=== PATIENT | male | born 1965 | race Caucasian/White ===

== ENCOUNTER 2024-10-11 11:22 | Emergency (ER) | payer OTHER, SELFPAY ==
[2024-10-11 11:26] VITALS: BP 146/81; PULSE 79; RESP 18; TEMP 36.2; O2SAT 95; BMI 32.1
--- NOTE | 2024-10-11 11:37 | ED_ITS ---
HPI - General Adult General Chief complaint: Burn/Smoke Inhalation Stated complaint: Burned 3 fingers left hand Time Seen by Provider: 10/11/24 11:28 History of Present Illness HPI narrative: Pt has a wood stove. Pt tried catching a hot log before it could drop on his toes, burning his 2nd -4th digits on his left hand. Pt ran fingers under cold water immediately after and took 800mg of Ibuprofen. Has blisters forming on the top pads of each 3 fingers. 59-year-old man presenting to the emergency department with concern of his burn to his left hand. Has a wood stove and a log was about to drop on his toes. Holding would with his right hand he reached out with his left hand and burned them on glass. He is burned the pads of his fingers. He has ran his fingers under cold water and took 800 mg of ibuprofen. I enter the room to see him with his fingers in a cup of ice water. Related Data Home Medications ?Medication ?Instructions ?Recorded ?Confirmed lisinopril 20 mg tablet mg DAILY 10/11/24 Allergies Allergy/AdvReac Type Severity Reaction Status Date / Time No Known Drug Allergies Allergy Verified 10/11/24 11:31 Review of Systems Status of ROS: Reports: 6 or more systems reviewed and unremarkable except as noted in History and below [facility] Social History service: No Exam Narrative: Exam Narrative: Pleasant. NAD. Calm. Breathing easily. Examining his left hand. There is 1 large blister covering the distal finger pad of the 2nd 3rd and 4th fingers of the left hand. Sharma are not circumferential. Well-perfused peripherally. Const: Vital Signs, click to edit/add: Vital Signs - 24 hr 10/11/24 11:26 Temperature 97.2 F L Pulse Rate [Right Pulse Oximeter] 79 Respiratory Rate 18 Blood Pressure [Ri ght Upper Arm] 146/81 H Pulse Oximetry 95 Oxygen Delivery Me thod Room Air Documenting provider has reviewed patient's vital signs: yes Course Vital Signs Vital signs: Initial Vital Signs Temperature 97.2 F L 10/11/24 11:26 Temperature Source Temporal Artery Scan 10/11/24 11:26 Pulse Rate 79 10/11/24 11:26 Pulse Rhythm Regular 10/11/24 11:26 Respiratory Rate 18 10/11/24 11:26 Blood Pressure 146/81 H 10/11/24 11:26 Blood Pressure Mean 102 10/11/24 11:26 Blood Pressure Position Sitting 10/11/24 11:26 Pulse Oximetry 95 10/11/24 11:26 Oxygen Delivery Method Room Air 10/11/24 11:26 Vital Signs Temperature 97.2 F L 10/11/24 11:26 Pulse Rate 79 10/11/24 11:26 Respiratory Rate 18 10/11/24 11:26 Blood Pressure 146/81 H 10/11/24 11:26 Pulse Oximetry 95 10/11/24 11:26 Oxygen Delivery Method Room Air 10/11/24 11:26 Temperature 97.2 F L 10/11/24 11:26 Pulse Rate 79 10/11/24 11:26 Respiratory Rate 18 10/11/24 11:26 Blood Pressure 146/81 H 10/11/24 11:26 Pulse Oximetry 95 10/11/24 11:26 Oxygen Delivery Method Room Air 10/11/24 11:26 Medical Decision Making MDM Narrative Medical decision making narrative: Pain is improved well calling. The fact that there is pain suggest that this is limited to apparent second-degree sharma. He does have some aloe gel that was placed. I think this is a good idea to continue with some form of aloe gel perhaps even with lidocaine. Elevation. Unlikely to get infected. Considering it is the finger pads, loose tissue will slough off with use over time but could also trim away when blisters pop. I might be more inclined just to leave them in place for comfort. Pain meds. See patient discharge plan for further discussion Can continue to would be helpful for me to take pictures of them and get them to you sooner? Would be helpful for me to take pictures of them and get them to you soon cool in cold water as needed over the next few hours. Can take up to 800 mg of ibuprofen (total of 2400 mg per day) or up to 1000 mg of acetaminophen per dose. Alternative to the ibuprofen might be up to 500 mg of naproxen 2 times daily. Ibuprofen or naproxen can be combined with acetaminophen. I am also prescribing some oxycodone from [facility]. This opiate can be combined with any of the meds above. Also elevate for comfort. Over the next day or 2 would also keep moist with aloe vera gel. Can buy some [id number] also with lidocaine if you like. Monitor for increased swelling, redness, heat, pain after 2 days. Watch also for purulent drainage of course. Discharge Plan Discharge Clinical Impression: Second degree burn Patient Disposition: Home, Self-Care Condition: Stable Additional Instructions: Can continue to would be helpful for me to take pictures of them and get them to you sooner? Would be helpful for me to take pictures of them and get them to you soon cool in cold water as needed over the next few hours. Can take up to 800 mg of ibuprofen (total of 2400 mg per day) or up to 1000 mg of acetaminophen per dose. Alternative to the ibuprofen might be up to 500 mg of naproxen 2 times daily. Ibuprofen or naproxen can be combined with acetaminophen. I am also prescribing some oxycodone from [facility]. This opiate can be combined with any of the meds above. Also elevate for comfort. Over the next day or 2 would also keep moist with aloe vera gel. Can buy some [id number] also with lidocaine if you like. Monitor for increased swelling, redness, heat, pain after 2 days. Watch also for purulent drainage of course. Prescriptions: No Action lisinopril 20 mg tablet DAILY Stand Alone Forms: [employer] Info Instructions
--- OUTSIDE RECORDS SUMMARY | 2024-10-11 12:25 | XMS_ITS | Clinical Summary ---
Author Organization [facility] Address [place], [place] [address] Care Team Providers Care Systems Management Consultant Name Role Phone VotelMaxwell MD Primary Care Provider + Allergies No known active allergies Medications ibuprofen (ADVIL; MOTRIN) 200 mg tablet Take 1 Tablet (200 mg) by mouth every 6 hours. 0 02/26/2022 Active lisinopriL (PRINIVIL; ZESTRIL) 20 mg tabletIndication s:HTN (hypertension) Take 1 Tablet (20 mg) by mouth once daily. 90 Tablet 3 11/18/2023 Active Active Problems Problem Noted Date Diagnosed Date Acute midline low back pain with right-sided sci atica 03/28/2022 Sensorineural hearing loss of both ears 01/12/20 22 HTN (hypertension) 11/26/2017 Encounters Date Type Department Care Team Description 10/11/2024 Nurse Triage [facility] [address] [place] [address] VotelMaxwell MD Burn 08/08/2024 Refill [facility] [address] [place] [address] Votel, Maxwell Underwood MD Refill Request (Lisinopril) from Last 3 Months Immunizations Name Administration Dates Next Due COVID-19 vaccine (Moderna 100mcg/0.5mL) SARA TINOCO 02/05/2021,12/27/2020 Influenza, IIV3 (Age >=3 years) 06/06/2010 Influenza, IIV4 10/17/2022,08/10/2020 Td, Preservative Free (age >= 7 Years) 8 Tdap 03/20/2007 Zoster (Shingrix-RZV, recombinant) 11/06/2020, Family History Medical History Relation Name Comments Hypertension Brother Diabetes Father Heart failure Father Cancer-colon Maternal Aunt Cancer-colon Maternal Uncle Esophageal cancer Mother Relation Name Status Comments Brother Alive Father Maternal Aunt Alive Maternal Uncle Alive Mother Social History Tobacco Use Types Packs/Day Years Used Date Smoking Tobacco: Never Smokeless Tobacco: Never Tobacco Cessation:Counseling Given: Yes Alcohol Use Standard Drinks/Week Comments Yes 0 (1 standard drink = 0.6 oz pur e alcohol) 2-3 times per week PHQ-2 Answer Date Recorded PHQ-2 TOTAL SCORE 0 11/18/2023 Social Connections Answer Date Recorded Frequency of Communication with Friends and Fami ly Not on file 10/21/2023 Financial Resource Strain Answer Date R ecorded Difficulty of Paying Living Expenses 3 10/16/2022 Difficulty of Paying Living Expenses Not on file 10/16/2022 Food Insecurity Answer Date Recorded Worried About Running Out of Food in the Last Ye ar 1 10/16/2022 Transportation Needs Answer Date Record ed Lack of Transportation (Medical) 1 10/16/2022 Housing Stability Answer Date Recorded Unable to Pay for Housing in the Last Year 1 10/16/2022 Sex and Gender Information Value Date Recorded Sex Assigned at Not on file Legal Sex Male 5:31 AM [employer] Gender Identity Not on file Sexual Orientation Not on file 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 Not on file Not on file Obstetrics History Last Filed Vital Signs Vital Sign Reading Time Taken Comments Blood Pressure 116/73 12/17/2023 10:20 AM CDT Pulse 69 12/17/2023 10:20 AM CDT Temperature 36.4 C (97.5 F) 11/18/2023 9:54 AM [employer] Respiratory Rate 12 10/11/2020 1:03 PM [employer] Oxygen Saturation 95% 11/18/2023 9:54 AM [employer] Inhaled Oxygen Concentration - - Weight 116 kg (255 lb 11.2 oz) 11/18/2023 9:54 A M [employer] Height 186.3 cm (6' 1.35) 11/18/2023 9:54 AM CS T Body Mass Index 33.42 11/18/2023 9:54 AM [employer] Plan of Treatment Health Maintenance Due Date Last Done Comments HIV for age 15-65 1979 Hepatitis C screening for ag e 18-79 1982 Pneumococcal series for age 50+ (1 of 1 - PCV) 2014 COVID-19 vaccine series (3 - season) 2024 02/05/2021, 12/27/2020 Influenza for age 50-64 05/23/2024 10/17/19 23, 08/10/2020, 06/06/2010 BMI (ht and wt on same day) for age 18+ 11/18/2024 11/18/2023, 11/19/2022, 10/17/2022, Additional history exists Depression screening for age 12+ 11/18/2024 11/18/2023, 01/24/2022, 02/18/2020, Additional history exists Colonoscopy through age 75 04/24/2026 04/24/2016 Tetanus booster 11/27/2027 11/26/2017, 03/20/2007 Lipids for age 45-75 11/18/2028 11/18/2023, 01/24/2022, 11/26/2017 RSV vaccine for adults or (1 - 1-dose 75+ series) 2039 Tdap Completed 03/20/2007 Zoster (shingles) series for age 50+ Completed 11/06/2020, 08/10/2020 Procedures Procedure Name Priority Date/Time Associated Diagnosis Comments LIPID PANEL W REFLEX MEASURED LDL Routine 11/18/2023 10:41 AM [employer]ACHINE Routine general medical examination at a health care facility SCAN-COLONOSCOPY 04/24/2016 12:0 0 AM CDT from Last 3 Months or Most Recently Relevant to Health Maintenance Results * (ABNORMAL) LIPID PANEL W REFLEX MEASURED LDL (11/18/2023 10:41 AM [employer] MACHINE) CHOLESTEROL,TOTAL 173 100 - 199 mg/dL 11/18/2023 6:58 PM [employer]ACH[employer] [facility] Comment: Cholesterol, Total Reference Ranges Desirable <200 mg/dL Borderline 200-239 mg/dL High >=240 mg/dL TRIGLYCERIDES 69 <150 mg/dL 11/18/2023 6:58 PM [employer]ACHINE [facility] HDL CHOLESTEROL 40(L) >40 mg/dL 6:58 PM [employer]ACHINE [facility] NON-HDL CHOLESTEROL 133 <145 mg/dl 11/18/2023 6:58 PM [employer] [facility] CHOL/HDL RATIO 4.33 <4.50 11/18/2023 6:58 PM [employer] [facility] LDL CHOLESTEROL 119 <=130 mg/dL 11/18/2023 6:58 PM [employer] [facility] VLDL CHOLESTEROL 14 <=30 mg/dL 11/18/2023 6:58 PM [facility] PROVIDER ORDERED STATUS RANDOM 11/18/2023 6:58 PM [employer] [facility] Blood BLOOD SPECIMEN / Unknown Venipuncture / Unknown 11/18/2023 10:41 AM [employer]ACHINE 11/18/2023 10:42 AM [employer]ACH[employer] us Maxwell Schaefer MD CHEMISTRY Final Re sult [facility] [address] [place] [id number], * SCAN-COLONOSCOPY (04/24/2016 12:00 AM CDT) us Scanner OTHER Final Result from Last 3 Months or Most Recently Relevant to Health Maintenance Insurance [employer] [place] [id number] Care Teams Systems Management Consultant Relationship Specialty Start Date End Date Votel, Maxwell Underwood MD [address] [place] [address] PCP - General Family Practice 10/17/22
== END 2024-10-11 12:30 | disposition home or self-care (01) ==
PROVIDERS: Emergency Provider Family Medicine
DX: T23.202A Burn of second degree of left hand, unspecified site, initial encounter (principal); X19.XXXA Contact with other heat and hot substances, initial encounter
CPT/HCPCS: 99283; 99284

== ENCOUNTER 2025-02-15 08:49 | Outpatient (RCR) | payer OTHER, SELFPAY | END 2025-06-15 23:59 | disposition home or self-care (01) | PROVIDERS: Visit Provider Family Medicine | DX: M25.562 Pain in left knee (principal); M76.32 Iliotibial band syndrome, left leg; Z51.89 Encounter for other specified aftercare | CPT/HCPCS: 97110; 97161 ==